=== PATIENT | male | born 1985 | race African-American/Black ===

== ENCOUNTER 2024-04-03 08:55 | Emergency (ER) | payer OTHER ==
[~2024-04-03] VITALS: Ht 198.1 cm; Wt 144.6 kg
[2024-04-03 09:12] VITALS: TEMP 99.3
[2024-04-03] MEDS ORDERED: ALBU18HF12 IH (09:20)
[2024-04-03 10:07] LABS: BASOPHILS % (AUTO) 0.2 % (0.0-2.0); EOSINOPHILS % (AUTO) 0.3 % (1.0-6.0); HEMATOCRIT 46.3 % (41-53); HEMOGLOBIN 14.6 g/dL (13.5-17.5); LYMPHOCYTES # (AUTO) 1.4 K/uL (1.0-4.8); LYMPHOCYTES % (AUTO) 29.5 % (22.0-44.0); MEAN CORPUSCULAR HEMOGLOBIN 22.6 pg (26.0-34.0); MEAN CORPUSCULAR HGB CONC 31.6 G/dL (31.0-37.0); MEAN CORPUSCULAR VOLUME 71 fL (80-100); MONOCYTES # (AUTO) 0.4 K/uL (0.1-1.0); MONOCYTES % (AUTO) 9.1 % (2.0-9.0); NEUTROPHILS % (AUTO) 60.9 % (40.0-70.0); PLATELET COUNT (AUTO) 190 K/uL (150-450); RED BLOOD CELL COUNT(AUTO) 6.48 MIL/uL (4.50-5.90); RED CELL DISTRIBUTION WIDTH 14.8 % (11.5-14.5); WHITE BLOOD COUNT (AUTO) 4.9 K/uL (4.5-11.0)
[2024-04-03 10:25] LABS: ANION GAP 6 mmol/L (8-16); CALCIUM, TOTAL 8.5 mg/dL (8.8-10.5); CARBON DIOXIDE 24 mmol/L (22-29); CHLORIDE 103 mmol/L (98-107); CREATININE 1.55 mg/dL (0.60-1.30); GLOMERULAR FILTR. RATE CALC > 60 mL/min (>60); GLUCOSE,RANDOM 115 mg/dL (70-110); LIPASE 38 U/L (16-77); POTASSIUM 3.6 mmol/L (3.5-5.1); SODIUM SERUM 133 mmol/L (136-145); UREA NITROGEN, BLOOD 13 mg/dL (7-18)
[2024-04-03] MEDS: ONDANSETRON HCL 4 MG/2 ML VIAL IVP ONE (11:07)
[2024-04-03] MEDS: SODIUM CHLORIDE 0.9% 2,000 ML IV ONE (11:07)
[2024-04-03] MEDS: MethylPREDNISolone SOD SUCC 125 MG/2 ML VIAL IVP ONE (11:08)
[2024-04-03] MEDS: DiphenhydrAMINE HCL 50 MG/ML VIAL IVP ONE (11:08)
[2024-04-03] MEDS: IOHEXOL 9 MG/ML 500 ML BOTTLE PO ONE (11:08)
[2024-04-03 11:33] LABS: TROPONIN I-HIGH SENSITIVITY 4 ng/L (<76)
[2024-04-03 11:45] LABS: ALANINE AMINOTRANSFERASE 42 U/L (12-78); ALBUMIN 3.6 g/dL (3.4-5.0); ALKALINE PHOSPHATASE 79 U/L (46-116); ASPARTATE AMINOTRANSFERASE 37 U/L (15-37); BILIRUBIN,TOTAL 0.4 mg/dL (0.1-1.0); TOTAL PROTEIN, SERUM 7.1 g/dL (6.4-8.2)
[2024-04-03] MEDS ORDERED: IOHEXOL 350 MG/ML 100 ML VIAL ONE (11:58)
[2024-04-03] MEDS ORDERED: SODIUM CHLORIDE 0.9% 100 ML ONE (11:58)
[2024-04-03 12:15] LABS: APPEARANCE,URINE CLEAR (CLEAR); BILIRUBIN,URINE NEGATIVE (NEGATIVE); COLOR,URINE YELLOW (YELLOW); GLUCOSE, URINE (UA) NEGATIVE (NEGATIVE); KETONES,URINE NEGATIVE (NEGATIVE); LEUKOCYTE ESTERASE ,URINE NEGATIVE (NEGATIVE); NITRATE,URINE NEGATIVE (NEGATIVE); OCCULT BLOOD,URINE MODERATE (NEGATIVE); PROTEIN,URINE 30-70 mg/dL (NEGATIVE); SPECIFIC GRAVITIY, URINE 1.036 (1.003-1.030)
[2024-04-03 12:30] LABS: BACTERIA,URINE None Seen /HPF (None Seen); WBC,URINE None Seen /HPF (0-5)
[2024-04-03 13:15] LABS: LACTIC ACID 1.7 mmol/L (0.4-2.0)
[2024-04-03 13:30] VITALS: BP 122/65; PULSE 80; RESP 18; O2SAT 94
[2024-04-03] MEDS ORDERED: ACET-66 PO (13:40)
[2024-04-03] MEDS ORDERED: OMEP20 PO (13:40)
[2024-04-03] MEDS ORDERED: ONDA-104 PO (13:40)
== END 2024-04-03 13:50 | disposition home or self-care (01) ==
LOC: EMS 08:59
DX: K52.9 Noninfective gastroenteritis and colitis, unspecified (principal); R53.1 Weakness; R53.83 Other fatigue; R10.84 Generalized abdominal pain; J45.909 Unspecified asthma, uncomplicated; Z91.013 Allergy to seafood; Z88.8 Allergy status to other drugs, medicaments and biological substances
CPT/HCPCS: 99285; 74177; 96374; 71045; 96361; 96375; 80048; 80076; 81001; 83605; 83690; 84484; 85025; 86850; 86900; 86901; 36415; 93005; Q9967 ×2; J2919; J2405; J7030; J7050